=== PATIENT | female | born 1980 | race Caucasian/White ===

== ENCOUNTER 2021-01-28 12:26 | Emergency (ER) | payer OTHER ==
[2021-01-28 13:37] LABS: EOSINOPHIL 2.9 % (0-5); HCT 41.6 % (37.0-47.0); HGB 14.3 g/dl (12.5-16.0); LYMPHOCYTE 24.5 % (15-48); MCH 30.3 pg (25.0-31.0); MCHC 34.4 g/dL (32.0-36.0); MCV 88.1 fL (78.0-100.0); MONOCYTE 6.7 % (0-12); MPV 9.8 fL (6.0-9.5); NEUTROPHIL 64.5 % (41-80); NRBC 0; PLT 252 K/uL (150-400); RBC 4.72 M/uL (4.20-5.40); RDW 12.4 % (11.5-14.0); WBC 7.3 K/uL (4.0-10.5)
[2021-01-28 13:50] LABS: COLOR RED (YELLOW)
[2021-01-28 13:52] LABS: CLARITY SLIGHTLY HAZY (CLEAR)
[2021-01-28 13:58] LABS: BACTERIA TRACE; URINARY RBC TNTC
[2021-01-28 14:20] LABS: ALBUMIN 3.6 g/dL (3.4-5.0); BILIRUBIN - TOTAL 0.3 mg/dL (0.2-1.0); BUN/CREAT RATIO (CALC) 16.7 RATIO; CREATININE 0.66 mg/dL (0.51-0.95); GLOBULIN (CALCULATION) 3.4 g/dL; POTASSIUM 3.9 mmol/L (3.5-5.1)
== END 2021-01-28 16:10 | disposition home or self-care (01) ==
LOC: FER 12:26
PROVIDERS: Nurse Practitioner Family
DX: E28.2 Polycystic ovarian syndrome (principal); N93.8 Other specified abnormal uterine and vaginal bleeding; F17.210 Nicotine dependence, cigarettes, uncomplicated; F41.9 Anxiety disorder, unspecified; F32.9 Major depressive disorder, single episode, unspecified; Z91.013 Allergy to seafood; Z79.899 Other long term (current) drug therapy
CPT/HCPCS: 36415; 76830; 80053; 81001; 84702; 85025; J1885